=== PATIENT | female | born 1975 | race Caucasian/White ===

== ENCOUNTER 2017-01-11 18:53 | Emergency (ER) | payer MEDICAID ==
[~2017-01-11] VITALS: Ht 154.9 cm; Wt 73.0 kg
[2017-01-11 18:55] VITALS: BP_SYST 135
[2017-01-11] MEDS ORDERED: ONDANSETRON 4 MG ODT TAB PO ONE (21:00)
[2017-01-11] MEDS ORDERED: DIPHENHYDRAMINE INJ 50 MG/ML VIAL IM ONE (21:00)
[2017-01-11] MEDS ORDERED: MORPHINE 4 MG/ML INJ. SYRINGE IM ONE (21:00)
[2017-01-11 21:20] VITALS: BP_SYST 127
== END 2017-01-11 21:20 | disposition home or self-care (01) ==
LOC: SED 18:53
DX: M54.40 Lumbago with sciatica, unspecified side (principal); Z88.6 Allergy status to analgesic agent; Z88.5 Allergy status to narcotic agent
CPT/HCPCS: 96372; 99284; J1200; J2270; Q0162

== ENCOUNTER 2019-10-22 00:47 | Emergency (ER) | payer MEDICAID ==
[~2019-10-22] VITALS: Ht 154.9 cm; Wt 77.1 kg
[2019-10-22 00:55] VITALS: BP_SYST 131
[2019-10-22] MEDS: NACL 0.9% 1,000 ML IV ONE (02:06)
[2019-10-22] MEDS: DIPHENHYDRAMINE INJ 50 MG/ML VIAL IVP ONE (02:07)
[2019-10-22] MEDS: PROCHLORPERAZINE EDISYLATE 10 MG/2 ML VIAL IVP ONE (02:07)
[2019-10-22 03:30] VITALS: BP_SYST 138
== END 2019-10-22 03:30 | disposition home or self-care (01) ==
LOC: SED 00:47
DX: R51 Headache (principal); R11.2 Nausea with vomiting, unspecified; I10 Essential (primary) hypertension; Z88.6 Allergy status to analgesic agent; Z88.5 Allergy status to narcotic agent
CPT/HCPCS: 81002; 96361; 96374; 96375; 99284; J0780; J1200; J7030

== ENCOUNTER 2021-11-09 19:28 | Emergency (ER) | payer MEDICAID, SELFPAY ==
[~2021-11-09] VITALS: Ht 154.9 cm; Wt 74.4 kg
[~2021-11-09 19:28] MED LIST: FERR220S6 PO; LISI1TAB57 PO; LORA10CA PO
[2021-11-09 19:30] VITALS: BP_SYST 151
[2021-11-09 21:37] LABS: BASOPHILS # (AUTO) 0.1 K/uL (0.0-0.2); BASOPHILS % (AUTO) 0.6 % (0.0-2.0); EOSINOPHILS # (AUTO) 0.2 K/uL (0.0-0.4); EOSINOPHILS % (AUTO) 1.2 % (0.0-4.0); HEMATOCRIT 34.7 % (36-48); HEMOGLOBIN 10.9 g/dL (12.0-16.0); LYMPHOCYTES # (AUTO) 2.6 K/uL (1.0-5.5); LYMPHOCYTES % (AUTO) 20.1 % (20.5-51.5); MEAN CORPUSCULAR HEMOGLOBIN 23 pg (27-31); MEAN CORPUSCULAR HGB CONC 31 % (32-36); MEAN CORPUSCULAR VOLUME 74 fL (79.0-98.0); MONOCYTES # (AUTO) 0.8 K/uL (0.0-1.0); MONOCYTES % (AUTO) 5.8 % (1.7-9.3); NEUTROPHILS # (AUTO) 9.5 K/uL (1.8-7.7); NEUTROPHILS % (AUTO) 72.3 % (40.0-70.0); PLATELET COUNT (AUTO) 454 K/uL (130-430); RED BLOOD CELL COUNT(AUTO) 4.69 MIL/uL (4.2-6.2); RED CELL DISTRIBUTION WIDTH 21.6 % (9.0-15.0); WHITE BLOOD COUNT (AUTO) 13.2 K/uL (4.8-10.8)
[2021-11-09 21:49] LABS: CALCIUM 8.3 mg/dL (8.4-11.0); CREATININE 0.92 mg/dL (0.55-1.30); POTASSIUM 4.2 mmol/L (3.5-5.1)
[2021-11-09 21:54] LABS: ALBUMIN 3.6 g/dL (3.4-4.8); TOTAL BILIRUBIN 0.1 mg/dL (0.0-1.0)
[2021-11-09 22:45] VITALS: BP_SYST 120
[2021-11-09] MEDS ORDERED: CIPR500T5 PO (22:50)
[2021-11-09] MEDS ORDERED: IBUP-1969 PO (22:51)
== END 2021-11-09 23:00 | disposition home or self-care (01) ==
LOC: SED 19:28
DX: G89.18 Other acute postprocedural pain (principal); R10.32 Left lower quadrant pain; I10 Essential (primary) hypertension; Z88.5 Allergy status to narcotic agent; Z79.899 Other long term (current) drug therapy
CPT/HCPCS: 36415; 80053; 85025; 99283

== ENCOUNTER 2022-07-23 19:50 | Emergency (ER) | payer MEDICAID ==
[~2022-07-23] VITALS: Ht 154.9 cm; Wt 84.4 kg
[~2022-07-23 19:50] MED LIST changes: +CIPR500T5 PO; +IBUP-1969 PO
[2022-07-23 20:08] VITALS: BP_SYST 154
[2022-07-23 21:03] LABS: BASOPHILS % (AUTO) 0.4 % (0.0-2.0); EOSINOPHILS # (AUTO) 0.2 K/uL (0.0-0.4); EOSINOPHILS % (AUTO) 1.9 % (0.0-4.0); HEMATOCRIT 41.6 % (36-48); HEMOGLOBIN 14.2 g/dL (12.0-16.0); LYMPHOCYTES # (AUTO) 2.3 K/uL (1.0-5.5); LYMPHOCYTES % (AUTO) 26.8 % (20.5-51.5); MEAN CORPUSCULAR HEMOGLOBIN 32 pg (27-31); MEAN CORPUSCULAR HGB CONC 34 % (32-36); MEAN CORPUSCULAR VOLUME 93 fL (79.0-98.0); MONOCYTES # (AUTO) 0.6 K/uL (0.0-1.0); MONOCYTES % (AUTO) 7.6 % (1.7-9.3); NEUTROPHILS # (AUTO) 5.4 K/uL (1.8-7.7); NEUTROPHILS % (AUTO) 63.3 % (40.0-70.0); PLATELET COUNT (AUTO) 291 K/uL (130-430); RED BLOOD CELL COUNT(AUTO) 4.48 MIL/uL (4.2-6.2); RED CELL DISTRIBUTION WIDTH 14.8 % (9.0-15.0); WHITE BLOOD COUNT (AUTO) 8.5 K/uL (4.8-10.8)
[2022-07-23 21:19] LABS: CREATININE 1.02 mg/dL (0.55-1.30)
[2022-07-23 21:21] LABS: PROTHROMBIN TIME 9.9 SECS (9.5-12.5)
[2022-07-23 21:27] LABS: ALBUMIN 3.7 g/dL (3.4-4.8); TOTAL BILIRUBIN 0.1 mg/dL (0.0-1.0)
[2022-07-24 00:02] LABS: BILIRUBIN,URINE NEGATIVE (NEGATIVE); BLOOD, URINE 3+ (NEGATIVE); CLARITY/URINE CLEAR (CLEAR); COLOR,URINE YELLOW (YELLOW); GLUCOSE,URINE NEGATIVE (NEGATIVE); KETONES,URINE TRACE (NEGATIVE); LEUKOCYTE ESTERASE ,URINE NEGATIVE (NEGATIVE); NITRITE, URINE NEGATIVE (NEGATIVE); PROTEIN URINE NEGATIVE (NEGATIVE); UROBILINOGEN,URINE 0.2 (0.2-1.0)
[2022-07-24 00:22] LABS: BACTERIA,URINE FEW /HPF (None Seen)
[2022-07-24 00:23] LABS: MUCUS,URINE None Seen /LPF (None Seen)
[2022-07-24 01:35] VITALS: BP_SYST 132
== END 2022-07-24 01:35 | disposition home or self-care (01) ==
LOC: SED 19:50
DX: N93.9 Abnormal uterine and vaginal bleeding, unspecified (principal); I10 Essential (primary) hypertension; Z88.5 Allergy status to narcotic agent; Z88.6 Allergy status to analgesic agent; Z79.899 Other long term (current) drug therapy
CPT/HCPCS: 36415; 80053; 81000; 85025; 85610-TC; 85730-TC; 99284